=== PATIENT | female | born 1950 | race Caucasian/White ===

== ENCOUNTER 2019-11-06 19:40 | Emergency (ER) | payer MEDICARE, OTHER ==
[~2019-11-06] VITALS: Ht 162.6 cm; Wt 67.1 kg
--- NOTE | 2019-11-06 19:58 | NUR ---
[facility]N FROM SNF PER PT'S REQUEST. CALLED FACILITY. PER LIZETTE PT STEPPED OUT OF THE FACILITY FOR >1 HR. PT WAS SUPPOSED TO BE IN PUI UNIT, PT REQUESTED TO BE TRANSFERRED; PT AWAKE AND ALERT, -SOB, PT IN BED 8, REPORTS OF BEING COVID +/EXPOSED. DENEIS ANY SYMPTOMS, PT IS WELL APPEARING, PER DR. TRAN'S WAREHOUSE RECEIVING SUPERVISOR: KWESI BHANDARI, TO DO COVID/UTOX/CXR. VSS, NAD NOTED
--- NOTE | 2019-11-06 20:38 | NUR ---
SPOKE WITH DR. KWESI RÍOS, REQUESTING BLOOD ALCOHOL LEVEL, COVID TEST, AND URINE DRUG SCREEN. IF ALL NEGATIVE, MAY RETURN TO FACILITY
--- NOTE | 2019-11-06 22:23 | NUR ---
INFORMED DR. KWESI BHANDARI AND NURSING [employer] DEVELOPER OF [facility] AND [employer] OF POSITIVE COVID RESULTS
--- NOTE | 2019-11-06 23:12 | NUR ---
CALLED CALL THE CAR FOR TRANSPORTATION. WILL CALL BACK WITH [facility], CONFIRMATION NUMBER [id number]
--- NOTE | 2019-11-06 23:16 | NUR ---
[facility] ETA 0012
--- NOTE | 2019-11-07 00:13 | NUR ---
REPORT GIVEN TO DIMPLE SYKES AT [facility]
--- NOTE | 2019-11-07 00:47 | NUR ---
[facility] DELAYED 30 MINUTES
--- NOTE | 2019-11-07 01:05 | NUR ---
REPORT GIVEN TO drywall applicator FROM [facility]
--- NOTE | 2019-11-07 02:04 | NUR ---
PT LEFT [facility] TO [facility]; PT LEFT IN STABLE CONDITION, ISOLATION PRECAUTIONS OBSERVED, -SOB, DENIES PAIN/DISCOMFORT. VSS.
[2019-11-07 02:06] VITALS: BP 155/88
== END 2019-11-07 02:06 ==
LOC: ER 19:40
DX: Z02.2 Encounter for examination for admission to residential institution (principal); U07.1 COVID-19; E03.9 Hypothyroidism, unspecified; K21.9 Gastro-esophageal reflux disease without esophagitis; K44.9 Diaphragmatic hernia without obstruction or gangrene; J90 Pleural effusion, not elsewhere classified; Z98.82 Breast implant status; F31.9 Bipolar disorder, unspecified; G62.9 Polyneuropathy, unspecified; M48.00 Spinal stenosis, site unspecified; R03.0 Elevated blood-pressure reading, without diagnosis of hypertension; M19.90 Unspecified osteoarthritis, unspecified site
CPT/HCPCS: 36415; 71045-TC; 80305